=== PATIENT | female | born 1990 | race Caucasian/White ===

== ENCOUNTER 2017-11-02 10:04 | Outpatient (CLI) | payer OTHER, SELFPAY | END 2017-11-02 10:42 | PROVIDERS: PCP Specialist; Visit Provider Specialist | DX: O36.5930 Maternal care for other known or suspected poor fetal growth, third trimester, not applicable or unspecified (principal); Z3A.38 38 weeks gestation of pregnancy | CPT/HCPCS: 59025; G0378 ==

== ENCOUNTER 2017-11-03 12:04 | Outpatient (CLI) | payer OTHER, SELFPAY | END 2017-11-03 13:00 | PROVIDERS: PCP Specialist; Visit Provider Specialist | DX: Z34.03 Encounter for supervision of normal first pregnancy, third trimester (principal); Z3A.39 39 weeks gestation of pregnancy | CPT/HCPCS: 59025; 84112; G0378 ==

== ENCOUNTER → 2022-01-31 12:03 | Outpatient (CLI) | payer OTHER, SELFPAY ==
--- NOTE | 2022-01-31 | DI.US.S_ITS ---
PROCEDURE: US OB >= 14 WEEKS FETUS INDICATIONS: 20 WEEK ANATOMY SCREEN OUTSIDE/PRIOR DATING DATA: Last menstrual period (LMP): 09/06/2021. LMP-based estimated date of delivery (PARRISH): 07-03 TECHNIQUE: Real-time scanning was performed of the fetus, with image documentation and biometric measurements. Endovaginal scanning: Not performed COMPARISON: None. FINDINGS: General: A single living intrauterine gestation is present. Presentation: Cephalic. Placenta: Placental position is posterior , without previa. Amniotic fluid index: 12.8 cm, normal range is 5-24 cm. Single deepest vertical pocket is 4.5 cm. heart rate: 150 beats per minute. Maternal cervical canal: 3.4 cm long. Normal lower limit is 2.5 cm. biometrics: Biparietal diameter: 5 cm Head circumference: 18.4 cm Abdominal circumference: 16.2 cm Femur length: 3.3 cm Clinically estimated gestational age: 21 weeks 0 days Composite gestational age from present scan: 20 weeks 6 days Estimated weight and percentile: 382 g, 37th percentile Anatomic survey: Neuro: Ventricles are non-dilated at less than 10 mm. Cisterna magna is normal at 3-11 mm. Cerebellum is normal in size and morphology. Nuchal skin fold: Normal at less than 6 mm between 14-21 weeks gestational age. Face: Nose and lips, facial profile are normal. Spine: No evidence for spina bifida. Heart: Suboptimal visualization of the heart. Diaphragm: Diaphragm is intact. Stomach: Left-sided stomach is present. Kidneys: No hydronephrosis. Normal is less than 5 mm in 2nd trimester, less than 7 mm in 3rd trimester. Cord: 3 vessel cord with possible marginal cord insertion. Bladder: Normal in size. Extremities: All 4 extremities identified. IMPRESSION: Single living intrauterine gestation with estimated gestational age 20 weeks 6 days and size concordant with clinical dates. Normal ISABEL. Suboptimal visualization of the heart and possible marginal cord insertion. Repeat study recommended to re-evaluate these 2 structures. We strive to produce accurate, complete, and clear reports of imaging services. To assist us in improving patient care, this report was composed using standard report templates and voice recognition software. Therefore, it may contain abnormal punctuation, insertions and/or omissions. Occasional wrong-word or sound-alike substitutions may occur. Though we review the report and make efforts to correct it, we do recommend that the report be read carefully in proper context to recognize any text inaccuracies. Dictated by: Brent Castañeda M.D. on 01/31/2022 at 13:23 Approved by: Brent Castañeda M.D. on 01/31/2022 at 13:27
== END ==
PROVIDERS: Family Provider Specialist; Referring Provider Nurse Practitioner Obstetrics & Gynecology; Visit Provider Nurse Practitioner Obstetrics & Gynecology
DX: Z3A.20 20 weeks gestation of pregnancy; Z36.89 Encounter for other specified antenatal screening
CPT/HCPCS: 76811

== ENCOUNTER 2022-05-23 06:10 | Observation (INO) | payer OTHER, SELFPAY ==
[2022-05-23 06:47] LABS: COVID19 -Nasal RAPID Negative (Negative)
== END 2022-05-23 09:12 | disposition home or self-care (01) ==
PROVIDERS: Admitting Provider Obstetrics & Gynecology; Family Provider Specialist; Referring Provider Obstetrics & Gynecology; Visit Provider Obstetrics & Gynecology
DX: O32.1XX0 Maternal care for breech presentation, not applicable or unspecified (principal); Z3A.37 37 weeks gestation of pregnancy; Z20.822 Contact with and (suspected) exposure to COVID-19
CPT/HCPCS: 59025; 59050; 59412; 76815; 87635; 96372; C9803; G0378; G0379

== ENCOUNTER 2022-06-11 09:26 | Inpatient (IN) | payer OTHER, SELFPAY ==
[2022-06-11] VITALS (7 sets, daily range): BP systolic 69–124; BP diastolic 62–86; PULSE 49–73; RESP 12–18; TEMP 36.3–37.1; O2SAT 95–98
--- NOTE | 2022-06-11 09:38 | P.HPOB_ITS ---
OB HPI Date/Time Date of admission: 06/11/22 Date Patient Seen: 06/11/22 Time Patient Seen: 09:39 History of Present Condition Chief complaint: OB Check : 2 Para: 1 Estimated Date of Delivery: 06/13/22 Estimated Gestational Age (weeks): 39 5/7 Narrative: Sosa Giron is a 31 year old female at 39wks 5days by LMP and 9 wk US. care with CNM complicated by breech lie with unsuccessful ECV, scheduled for tomorrow. Patient awoke with contractions at 0530 that have steadily increased in frequency and intensity, no every 2-5 minutes. +FM. No leaking fluid or vaginal bleeding. is present and supportive. Indications Operative indications ( section): breech presentation Other reason(s) for admission: term labor History of Present care: good care, initiated at week # (9), number of visits (10) and pounds weight gain (42) Dating criteria: LMP confirmed by 1st trimester US Ultrasounds: normal mid trimester US Obstetrical complications: none Medical complications: none Preadmission Labs Blood type: B (+) positive -: Antibody screen: negative, GBS status: positive, HBsAG: negative, HIV: negative and RPR/VDLR: negative -: Chlamydia screen: not detected and Gonorrhea screen: not detected -: Rubella: immune and Varicella: immune HCAB: negative Cell-free DNA: Negative 1 hr GTT: 65 Prior (ies) History: 11/04/2018- (vaginal delivery) Erika 38wks 3 hr1 hr 30 minNoneFemale6 lbs 4 oz [facility] Evaluation Evaluation Baseline heart rate: 120 Variability: Moderate (11-25) monitor accelerations: Present Monitor Decelerations: Absent Contraction Frequency (minutes): 4 Uterine Contraction Intensity: Moderate Category of Tracing: Reactive Dilation (cm): 5 Effacement (%): 90 Dilation: >/=5 cm Effacement: >/=80% station: -4 Position of cervix: posterior Consistency: soft Chandler score: 8 PFSH Medical History (Updated 06/11/22 @ 10:03 by Marisa Orr CNM) 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 Surgical History (Updated 06/11/22 @ 10:02 by Marisa Orr CNM) H/O breast augmentation Social History (Updated 06/11/22 @ 10:04 by Marisa Orr CNM) marital status: number of children: 1 household members: spouse and children lives independently: Yes caregiver/support person: No Smoking Status: Never smoker Meds Home Medications and Allergies Home Medications Medication Instructions Recorded Confirmed Type vitamin-ferrous fumarate 1 cap PO QDAY ##0 03/30/17 01/01/18 History 65 mg iron-folic acid 1 mg capsule (Mynatal) Breast Pump - Double Electric u SEE INSTRUCTIONS ##1 05/18/17 01/01/18 Rx Breast Pump - Double Electric u SEE INSTRUCTIONS ##1 09/28/17 01/01/18 Rx Allergies Allergy/AdvReac Type Severity Reaction Status Date / Time No Known Allergies Allergy Verified 05/23/22 06:33 Review of Systems Review of Systems ROS: Yes All systems reviewed with the patient and are negative except as otherwise documented OB Exam Resp Effort & Inspection: normal respiratory effort Auscultation: clear to auscultation bilaterally Cardio Rate: regular rate Rhythm: regular rhythm Heart Sounds: S1 normal and S2 normal Presentation: cullen breech Assessment and Plan Assessment and Plan Assessment and Plan narrative: A: Term Labor Breech Active Labor Cat I FHR P: Admit, routine pre-op orders. Notified chargemaster analyst, OR and [facility] OB/ Dr. YANCI Shrestha. Transfer or care to .
[2022-06-11 10:13] LABS: Add Manual Diff / Slide Review NO; Basophils Absolute Auto 200 /uL (0-100); Basophils Percent Auto 1.5 % (0-2); Eosinophils Absolute Auto 0 /uL (0-450); Eosinophils Percent Auto 0.3 % (2-4); Hematocrit 36.6 % (36-46); Hemoglobin 12.2 g/dL (12.0-16.0); Lymphocytes Absolute Auto 1600 /uL (1100-4500); Mean Corpuscular HGB Conc 33.3 % (30-36); Mean Corpuscular Hemoglobin 29.3 PG (26-34); Mean Corpuscular Volume 88.1 fL (80-100); Monocytes Absolute Auto 1100 /uL (0-900); Monocytes Percent Auto 8.7 % (3-14); Neutrophils Absolute Auto 9600 /uL (1500-7000); Neutrophils Percent Auto 76.5 % (50-75); Platelet Count 319 X10^3/uL (150-400); Red Blood Cell Count 4.16 X10^6/uL (4.0-5.2); White Blood Cell Count 12.6 X10^3/uL (4.5-11.0)
[2022-06-11 10:24] LABS: COVID19 -Nasal RAPID Negative (Negative)
[2022-06-11] MEDS: LACTATED RINGERS 1,000 ML 100 ML IV ×2 (10:50→12:29)
[2022-06-11] MEDS: CITRIC ACID/SODIUM CITRATE 15 ML SOLUTION 30 ML PO (10:50)
[2022-06-11] MEDS: CEFAZOLIN 2 GM/100 ML PREMIX 100 ML IV (11:08)
--- NOTE | 2022-06-11 12:03 | SUR.OPER ---
Supine on Padded OR bed, head on pillow, safety belt at thigh, arms secured on padded arm boards at <90 degrees abduction. Bump under right buttock. Legs uncrossed with pillow under knees, gel pad to heels, tape over blanket to lower legs.
[2022-06-11] MEDS: TRANEXAMIC ACID 1,000 MG in SODIUM CHLORIDE 0.9% 100 ML 200 MG IV (12:05)
[2022-06-11] MEDS: BUPIVACAINE 0.5% (PF) VIAL 30 ML INJ (12:17)
[2022-06-11] MEDS: ONDANSETRON 8 MG in SODIUM CHLORIDE 0.9% 50 ML 216 MG IV (15:21)
[2022-06-11] MEDS: METOCLOPRAMIDE 10 MG/2 ML INJ IV (16:07)
--- NOTE | 2022-06-11 19:25 | PM.OBCS.1 ---
Operative Date/Time/Diagnoses Date of procedure: 06/11/22 Time of procedure: 12:15 Pre-op diagnosis: 39 week , labor, persistent cullen breech presentation Post-op diagnosis: same (With bicornuate uterus noted) Procedure & Clinicians Procedure: Primary lower transverse section Same procedure as scheduled: Yes Indications: 31-year-old female at 39 weeks with persistent cullen breech presentation. She had an attempted external cephalic version, without success. She had been scheduled for a primary section tomorrow, but arrived today in active labor at 5 cm. On ultrasound baby was still cullen breech presentation. She was consented to proceed with primary section for delivery. Surgeon: Jena Shrestha Click Yes if Unassisted: No Reason for Healthcare Economics Manager: Healthcare Economics Manager: Marisa Tinajero CNM. Healthcare Economics Manager needed for retracting for abdominal exposure for the section and assisting with delivery of the baby with maintaining some pressure on the baby's head, following the baby down the uterus as baby was delivered from the breech presentation. Healthcare Economics Manager needed since no scrub OR assist available. Anesthesia Type: Spinal Operative Notes Findings: Viable female infant delivered from cullen breech presentation. Clear amniotic fluid. Bicornuate uterus noted. On internal palpation septum noted extending approximately 3 cm down from fundus. Normal bilateral fallopian tubes and ovaries. 0.5 cm loosely connect right paratubal cyst, removed, discarded per patient preference rather than sending to pathology since benign paratubal cyst. Single surgical staple noted on surface of right ovary, loosely connected by fibrous tissue, staple removed. Closure Type: primary Specimen(s): cord blood Intraoperative meds administered: Duramorph, Methergine, Pitocin and Tranexamic acid Applied: Catheter (Rodriguez in bladder) Estimated Blood Loss (mL): 400 Blood products transfused: none Procedure in detail: Description of procedure: ?She was transferred from the center to the operating room. ?After an adequate level of spinal anesthesia was obtained, she was placed in the supine position, Rodriguez catheter was placed and she was prepped and draped in routine sterile fashion. ?A Pfannenstiel skin incision was made in the lower abdomen and carried down to the level of the fascia. ?The fascia was incised in the midline and was bluntly extended transversely. ?The superior and inferior edges of the fascia were elevated and dissected off the rectus muscles with sharp and blunt dissection. ?The muscles were bluntly split in the midline. ?The parietal peritoneum was elevated, incised and extended bluntly. ?The bladder blade was placed. ?The visceral peritoneum was elevated off the lower uterus, incised and the bladder flap was bluntly created. ?The bladder blade retractor was placed. ?A transverse incision was made in the lower uterus and the incision was extended transversely with blunt dissection. ?Clear fluid was noted. The 's buttocks was elevated and delivered through the incision. The infant was left hip anterior and the the left leg was delivered by flexing at the hip and leg delivered. The infant was turned spine anterior and the right leg was delivered by flexing at the hip. The was delivered to level of mid chest and then turned left shoulder anterior and left arm was delivered by cat's paw maneuver with gentle pressure on the humerus. The was turned right shoulder anterior and right arm likewise delivered with gentle pressure on the humerus. The was turned back spine anterior and with the primary teaching assistant following with fundal pressure, the infant's head easily delivered, flexing through the incision with gentle pressure on the anterior mandible. The infant girl was stimulated and became vigorous. She was shown to the parents, then wrapped in a warm towel. After 1 minute cord was clamped and cut and the infant was handed off to respiratory therapy who was present for delivery. Cord blood was obtained a specimen. The placenta was expressed with cord traction and uterine massage. It appeared intact with a normal three-vessel cord. The uterus was exteriorized the abdominal incision and swept clean of adherent clots and membranes. The uterus was noted to appear heart shaped at the fundus and on internal palpation a division, septum was noted extending approximately 3 cm down from the fundus, confirming a bicornuate uterus. Due to some mild initial uterine atony and heavier bleeding along the uterine incision, she was given methargine then TXA besides the routine IV Pitocin, to be aggressive with preventing blood loss with her prior history of hemorrhage. The uterus did contract down well, bleeding became normal with the medication and closure of the uterus. The uterus was closed in 2 layers with 0 Vicryl, the 1st layer being in running locking continuous fashion and the 2nd layer being in a vertical imbricating type fashion. Hemostasis was noted. The tubes and ovaries were inspected and noted to be normal with a small right loosely connected paratubal cyst noted, removed. The uterus was placed back into the maternal abdomen. The paracolic gutters were inspected and wiped of some minimal blood and fluid. The anterior cul-de-sac was inspected and some clot was removed. The uterine incision was re- inspected and good hemostasis was noted. The pelvis was irrigated. Repeat inspection showed continued hemostasis. The abdomen was closed. The visceral peritoneum was closed with 3 Vicryl. The parietal peritoneum was reapproximated with 3Vicryl. The fascia was closed with running continuous suture of 0 Vicryl. The skin was closed with a subcuticular suture of 4 0 Monocryl. Steri-Strips and sterile Aquacel dressing was placed. She tolerated the procedure well and went to the recovery room in stable condition. Complications: none Baby 1: Infant Gender: Female Presentation: breech Placental Delivery Description: Expressed Cord Vessel Description: 3 Vessels score (1 min): 9 score (5 min): 9 weight: 7 lb 1.053 oz Post-operative Condition: stable Disposition: PACU Aftercare: routine postop
[2022-06-11] MEDS: LACTATED RINGERS 1,000 ML 1000 ML IV (20:44)
[2022-06-11] MEDS: SCOPOLAMINE 1 PATCH TOP (21:58)
[2022-06-11] MEDS: PROMETHAZINE 25 MG TABLET 12.5 MG PO (21:58)
[2022-06-12] MEDS: LACTATED RINGERS 1,000 ML 100 ML IV (00:28)
[2022-06-12] MEDS: ACETAMINOPHEN 325 MG TABLET 650 MG PO ×2 (08:47→14:23)
[2022-06-12] MEDS: LANOLIN OINT 7 GM 1 APPLIC TOP (08:47)
[2022-06-12] MEDS: DOCUSATE 100 MG CAPSULE 200 MG PO (08:47)
[2022-06-12 08:48] LABS: Add Manual Diff / Slide Review NO; Basophils Absolute Auto 100 /uL (0-100); Basophils Percent Auto 0.4 % (0-2); Eosinophils Absolute Auto 0 /uL (0-450); Eosinophils Percent Auto 0.1 % (2-4); Hematocrit 30.7 % (36-46); Hemoglobin 10.2 g/dL (12.0-16.0); Lymphocytes Absolute Auto 1600 /uL (1100-4500); Lymphocytes Percent Auto 8.7 % (25-40); Mean Corpuscular HGB Conc 33.3 % (30-36); Mean Corpuscular Hemoglobin 29.3 PG (26-34); Mean Corpuscular Volume 87.9 fL (80-100); Monocytes Absolute Auto 1900 /uL (0-900); Monocytes Percent Auto 10.1 % (3-14); Neutrophils Absolute Auto 15000 /uL (1500-7000); Neutrophils Percent Auto 80.7 % (50-75); Platelet Count 266 X10^3/uL (150-400); White Blood Cell Count 18.6 X10^3/uL (4.5-11.0)
--- NOTE | 2022-06-12 13:11 | P.DS_ITS ---
Discharge Providers Provider Date of admission: 06/11/22 09:26 Discharge Date: 06/12/22 Primary care physician: SEBAS Hess Consults: 06/11/22 15:03 Consult to Housekeeper Cleaning Cooking Routine Comment: Discharge provider: Marisa Orr CNM Summary Hospital Course Date Patient Seen: 06/12/22 Time Patient Seen: 13:11 Diagnoses: Primary Hospital Course: PPD1: Stable s/p primary for breech. Voiding, ambulating and theresa astfeeding independently. Vaginal bleeding is scant, without clots. Dressing incision is clean, without drainage. Pain is well controlled with ibuprofen and Tylenol, declining narcotics. Peripartum Data Infant Delivery Method: Section Laceration Description: None Procedures: Primary for breech complications: none [place] 1: Gender: Female Disposition of : home Discharge Diagnosis (1) S/P primary low transverse : Start Date: 06/11/22 Status: Acute Status at Discharge Cognitive/behavioral status at discharge: oriented and calm Functional status at discharge: independent ambulation Overall status at discharge: patient is progressing back to baseline Time Spent with Patient Time attestation: Total time spent providing and/or coordinating discharge services: Time spent: Less than 30 minutes Objective Labs Result Diagrams: 06/12/22 08:35 Labs: Laboratory Results - last 24 hr 06/12/22 08:35 WBC 18.6 H RBC 3.50 L Hgb 10.2 L Hct 30.7 L MCV 87.9 MCH 29.3 MCHC 33.3 RDW 13.0 Plt Count 266 Neut % (Auto) 80.7 H Lymph % (Auto) 8.7 L Mercer % (Auto) 10.1 Eos % (Auto) 0.1 L Baso % (Auto) 0.4 Neut # (Auto) 72414 H Lymph # (Auto) 1600 Mercer # (Auto) 1900 H Eos # (Auto) 0 Baso # (Auto) 100 Exam Vital Signs (past 8 hours): Oxygen Delivery Method Room Air VS: BP 96/62mmHg, HR 73bpm, RR 16, T 98.2F Temporal Other: LTAI covered with Auquacel dressing with scant drainage note, no redness around dressing Funds firm at U, lochia scant, no clots Discharge Plan Discharge Plan Patient Disposition: Home Provider Discharge Comment: pelvic rest x 6 weeks, no heavy lifting x 4 weeks Discharge orders & Medications Prescriptions: New docusate sodium 100 mg Capsule 200 mg PO DAILY 14 Days Qty: 60 0RF acetaminophen 325 mg Tablet 650 mg PO Q6H PRN (Reason: Fever/Mild Pain (1-3)) 14 Days Qty: 60 0RF ibuprofen 600 mg Tablet 600 mg PO Q6H PRN (Reason: Fever/Mild Pain (1-3)) 14 Days Qty: 60 0RF Continued Mynatal 1 EACH capsule 1 cap PO QDAY Qty: 0 Breast Pump - Double Electric SEE INSTRUCTIONS Qty: 1 0RF Breast Pump - Double Electric SEE INSTRUCTIONS Qty: 1 0RF Follow up/Referrals: Marisa Orr CNM [Advanced Lab Intern] - (Follow-up in office for dressing removal 06/17/22 @ 2pm Follow-up by phone 06/24/22 @ 11:45am Follow-up in office 07/22/21 @ 10:15am) Diet/Activity/Treatments Diet: Diet as Tolerated and Regular Activity: pelvic ret x 6 weeks, no heavy lifting x 4 weeks, no driving x 2 weeks Skin/Wound/Dressing Care Report to your healthcare provider any signs of infection, such as:: chills, fever, increased pain, unusual drainage and unusual redness Visit Report/Discharge Packet Instructions: DI for Depression
[2022-06-12] MEDS: IBUPROFEN 600 MG TABLET PO (14:23)
== END 2022-06-12 14:30 | disposition home or self-care (01) | DRG 788 ==
PROVIDERS: Nurse Practitioner Obstetrics & Gynecology; Admitting Provider Obstetrics & Gynecology; Family Provider Specialist; Referring Provider Obstetrics & Gynecology; Visit Provider Obstetrics & Gynecology
PROC: 10D00Z1 Extraction of Products of Conception, Low, Open Approach (ICD-10-PCS; CPT 59514; principal; 2022-06-11 11:00)
DX: O64.1XX0 Obstructed labor due to breech presentation, not applicable or unspecified (principal); Z3A.39 39 weeks gestation of pregnancy; Z37.0 Single live birth; O99.892 Other specified diseases and conditions complicating childbirth; Q51.3 Bicornate uterus; N83.8 Other noninflammatory disorders of ovary, fallopian tube and broad ligament; O34.03 Maternal care for unspecified congenital malformation of uterus, third trimester; Z20.822 Contact with and (suspected) exposure to COVID-19
CPT/HCPCS: 36415; 59025; 59514; 85025; 86850; 86900; 86901; 87635; C9803; G0379; J0690; J1885; J2250; J2274; J2405; J2590; J2765; J3010